=== PATIENT | female | born 1965 | race Caucasian/White ===

== ENCOUNTER → 2016-05-24 17:02 | Outpatient (CLI) | payer OTHER ==
[2009-12-26 09:15] VITALS: BMI 27.3
== END | disposition home or self-care (01) ==
LOC: D.MAMMO 05-06 13:30
DX: Z12.31 Encounter for screening mammogram for malignant neoplasm of breast (principal)

== ENCOUNTER 2016-06-27 16:56 | Emergency (ER) | payer OTHER ==
[2009-12-26 09:15] VITALS: BMI 27.3
[2016-06-27 17:25] LABS: BASOPHILS 0.1 % (0.0-2.0); EOSINOPHILS 0.6 % (0-7); HEMATOCRIT 43.6 % (36.0-48.0); HEMOGLOBIN 14.2 g/dL (12-16); IMMATURE GRANULOCYTES 0.6 % (0-5); LYMPHOCYTES 8.3 % (15-50); MCH 28.9 pg (26.0-34.0); MCHC 32.6 g/dL (31.0-37.0); MCV 88.6 fL (80.0-100.0); MEAN PLATELET VOLUME 9.4 fL (7.4-10.4); MONOCYTES 8.5 % (2-11); NEUTROPHILS 81.9 % (40-80); PLATELET COUNT 230 10x3/uL (130-400); RBC 4.92 10x6/uL (4.00-5.40); RDW 13.3 % (11.5-14.5); WBC 10.5 10x3/uL (4.8-10.8)
[2016-06-27 17:45] LABS: AMYLASE - SERUM 78 U/L (25-115); LIPASE 318 U/L (73-393)
[2016-06-27 18:02] LABS: APPEARANCE CLOUDY (CLEAR); BILIRUBIN NEGATIVE (NEGATIVE); COLOR DK YELLOW (YELLOW); GLUCOSE NEGATIVE (NEGATIVE); KETONE NEGATIVE (NEGATIVE); LEUKOCYTE ESTERASE TRACE (NEGATIVE); NITRITE NEGATIVE (NEGATIVE); PROTEIN TRACE mg/dL (NEGATIVE)
[2016-06-27 18:05] LABS: BACTERIA MODERATE /hpf (NONE SEEN); HYALINE CAST OCC /lpf (NONE SEEN); MUCUS <1+ /lpf (NONE SEEN); RED CELLS - URINE OCC /hpf (0-5); WHITE CELLS - URINE 0-5 /hpf (0-5)
[2016-06-27 18:16] LABS: ALBUMIN 3.4 g/dL (3.4-5.0); ALKALINE PHOSPHATASE 116 U/L (46-116); ALT (SGPT) 91 U/L (10-68); BILIRUBIN - TOTAL 0.68 mg/dL (0.2-1.3); CALC OSMOLALITY 280 mosm/kg (275-300); CALCIUM 9.1 mg/dL (8.5-10.1); CARBON DIOXIDE 26.2 mmol/L (21.0-32.0); CHLORIDE - SERUM 104 mmol/L (98-107); CREATININE - SERUM 1.4 mg/dL (0.6-1.3); GLUCOSE 98 mg/dL (74-106); POTASSIUM - SERUM 4.1 mmol/L (3.5-5.1); PROTEIN - SERUM 7.3 g/dL (6.4-8.2); SODIUM 140 mmol/L (136-145); UREA NITROGEN 17 mg/dL (7-18); eGFR NON AFRICAN AMERICAN 42 mL/min (90-120)
[2016-06-27 18:20] LABS: CREATINE KINASE 110 UL (21-215); TROPONIN-I < 0.017 ng/mL (0.000-0.060)
== END 2016-06-27 20:35 | disposition home or self-care (01) ==
LOC: D.ER 16:56
PROVIDERS: Emergency Medicine; Physician Assistant
DX: R10.13 Epigastric pain (principal); R07.9 Chest pain, unspecified; R11.2 Nausea with vomiting, unspecified; R19.7 Diarrhea, unspecified

== ENCOUNTER 2017-11-08 08:00 | Outpatient (CLI) | payer OTHER ==
[2009-12-26 09:15] VITALS: BMI 27.3
== END 2017-11-08 11:33 | disposition home or self-care (01) ==
LOC: D.MAMMO 08:00
DX: Z12.31 Encounter for screening mammogram for malignant neoplasm of breast (principal)

== ENCOUNTER 2019-02-26 21:39 | Emergency (ER) | payer OTHER ==
[~2019-02-26] VITALS: Ht 177.8 cm; Wt 102.7 kg
[2019-02-26 21:45] VITALS: Ht 177.8 cm; Wt 102.7 kg
[2019-02-26] MEDS ORDERED: NORVASC2.5 MG (21:46)
[2019-02-26] MEDS ORDERED: PEPCID40 MG PO (21:46)
[2019-02-26] MEDS ORDERED: CYMBALTA30 MG PO (21:46)
[2019-02-26 22:06] LABS: BASOPHILS 0.3 % (0-2); EOSINOPHILS 1.5 % (0-7); HEMOGLOBIN 14.5 g/dL (12-16); IMMATURE GRANULOCYTES 0.2 % (0-5); MCH 29.5 pg (26.0-34.0); MCV 89.6 fL (80.0-100.0); MEAN PLATELET VOLUME 9.2 fL (7.4-10.4); MONOCYTES 7.9 % (2-11); NEUTROPHILS 51.1 % (40-80); RBC 4.91 10x6/uL (4.00-5.40); RDW 13.1 % (11.5-14.5); WBC 10.2 10x3/uL (4.8-10.8)
[2019-02-26 22:15] LABS: PLATELET COUNT 315 10x3/uL (130-400)
[2019-02-26 22:16] LABS: CALC OSMOLALITY 285 mosm/kg (275-300); CALCIUM 8.9 mg/dL (8.5-10.1); CARBON DIOXIDE 29.7 mmol/L (21.0-32.0); CHLORIDE - SERUM 105 mmol/L (98-107); CREATININE - SERUM 1.2 mg/dL (0.6-1.3); GLUCOSE 97 mg/dL (74-106); POTASSIUM - SERUM 3.6 mmol/L (3.5-5.1); SODIUM 144 mmol/L (136-145); UREA NITROGEN 11 mg/dL (7-18); eGFR NON AFRICAN AMERICAN 50 mL/min (90-120)
[2019-02-26 22:18] LABS: APTT 28.6 SECONDS (22.8-39.4); INR 0.93 (0.85-1.17)
[2019-02-26 22:33] LABS: ALBUMIN 3.8 g/dL (3.4-5.0); ALKALINE PHOSPHATASE 105 U/L (46-116); ALT (SGPT) 29 U/L (10-68); BILIRUBIN - TOTAL 0.33 mg/dL (0.2-1.3); CKMB 0.7 U/L (0.0-3.6); CREATINE KINASE 175 UL (21-215); MAGNESIUM - SERUM 2.3 mg/dL (1.8-2.4)
[2019-02-26 22:37] LABS: TROPONIN-I < 0.017 ng/mL (0.000-0.060)
[2019-02-26] MEDS ORDERED: VOLTAREN75 MG PO (22:49)
[2019-02-26] MEDS ORDERED: BACLOFEN20 M1 PO (22:49)
[2019-02-26 23:30] VITALS: BP 128/79
== END 2019-02-26 23:30 | disposition home or self-care (01) ==
LOC: D.ER 21:39
PROVIDERS: Emergency Medicine
DX: M25.512 Pain in left shoulder (principal); M54.2 Cervicalgia; R07.89 Other chest pain; I10 Essential (primary) hypertension

== ENCOUNTER 2019-03-13 08:00 | Outpatient (CLI) | payer OTHER ==
[2019-02-26 21:45] VITALS: BMI 32.4
[~2019-03-13 08:00] MED LIST: BACLOFEN20 M1 PO; CYMBALTA30 MG PO; NORVASC2.5 MG; PEPCID40 MG PO; VOLTAREN75 MG PO
== END 2019-03-13 23:59 | disposition home or self-care (01) ==
LOC: D.MAMMO 08:00
PROVIDERS: ATTEND Family Medicine
DX: Z12.31 Encounter for screening mammogram for malignant neoplasm of breast (principal)

== ENCOUNTER → 2019-03-27 11:22 | Outpatient (CLI) | payer OTHER ==
[2019-02-26 21:45] VITALS: BMI 32.4
--- NOTE | 2019-03-30 15:28 | ST ---
PATIENT:HALIE CHEN MEDICAL RECORD: [id number] SEX: F LOCATION:[facility] ORDER #: ADMISSION DATE: 03/27/19 AGE OF PATIENT: 53 REFERRING PHYSICIAN: INTERPRETING PHYSICIAN: GRAHAM HERRERA MD DATE OF SERVICE: 03/27/2019 PROCEDURE: Nuclear stress test. INDICATION: Angina, chest pain, hypertension, and hyperlipidemia. She was exercised on standard Marcial protocol for 5 minutes 15 seconds achieving 85% maximum target heart rate response with 33 mCi of sestamibi injected at peak stress, 11 mCi used previously for rest images. FINDINGS: Gated SPECT reveals preserved ejection fraction at 76% with good wall motion and thickening and brightening throughout all segments. SPECT imaging Cardiolite was used as myocardial fusion agent. There is homogeneous uptake throughout all segments at rest and stress with no evidence of inducible ischemia or previous infarction. OVERALL IMPRESSION: 1. This is a normal nuclear stress test with no evidence of inducible ischemia or previous infarction. 2. Gated SPECT reveals a preserved ejection fraction at 76%. In this patient with ongoing symptomatology, the current scan does not suggest the presence of hemodynamically significant coronary artery disease. Evaluate noncardiac etiology of chest pain. TRANSINT:[id number] Voice Confirmation ID: [id number] DOCUMENT ID: [id number] GRAHAM HERRERA MD at 1528 CC: ELI ALEXIS [id number] DICTATION DATE: 03/28/19 1248 SHUTTLE REPAIRER: 03/28/19 2307 DEP CLI 03/27/[address] [id number]
== END | disposition home or self-care (01) ==
LOC: D.HCCARDIO 11:22
PROVIDERS: ATTEND Internal Medicine Interventional Cardiology
DX: I20.9 Angina pectoris, unspecified (principal)